=== PATIENT | male | born 1975 | race Hispanic/Latino ===

== ENCOUNTER 2017-07-16 12:16 | Emergency (ER) | payer OTHER ==
[2017-07-16] MEDS ORDERED: ACETAMINOPHEN-CODEINE 300/30MG TAB ONE (13:33)
== END 2017-07-16 13:52 | disposition home or self-care (01) ==
LOC: EDH 12:16
DX: S86.911A Strain of unspecified muscle(s) and tendon(s) at lower leg level, right leg, initial encounter (principal); Z98.890 Other specified postprocedural states; X58.XXXA Exposure to other specified factors, initial encounter; Y93.02 Activity, running; Y92.89 Other specified places as the place of occurrence of the external cause; Y99.8 Other external cause status